=== PATIENT | female | born 2005 | race Caucasian/White ===

== ENCOUNTER 2024-01-11 07:08 | Emergency (ER) | payer OTHER ==
[2024-01-11] MEDS ORDERED: NA CHLORIDE 0.9% 1,000 ML ONE (07:29)
[2024-01-11] MEDS ORDERED: ONDANSETRON 4 MG/2 ML VIAL ONE (07:29)
[2024-01-11 07:59] LABS: Absolute Basophils 0.1 K/uL (0-0.5); Absolute Eosinophils 0.1 K/uL (0-0.5); Absolute Lymphocytes (CBC) 2.1 K/uL (0.7-4.9); Absolute Neutrophil 7.1 K/uL (1.8-8.0); Basophils % 0.6 % (0-1.3); Eosinophils % 0.8 % (0-4.4); Hematocrit 50.2 % (36.0-45.0); Hemoglobin 16.6 g/dL (12.0-15.0); Lymphocytes % 20.5 % (15.3-44.8); MCH 29.3 pg (27.0-35.0); MCHC 33.1 g/dL (32.0-36.0); MCV 88.5 fL (80-100); MPV 9.1 fL (7.6-11.3); Monocytes % 9.3 % (3.3-12.3); Neutrophils % 68.8 % (41.7-73.7); Platelets 234 thou/uL (152-406); RBC Red Blood Cell Count 5.67 M/uL (3.86-4.86); Red Cell Distribution Width 14.2 % (12.1-15.2)
[2024-01-11 08:18] LABS: Albumin 4.2 g/dL (3.4-5.0); Albumin/Globulin Ratio 1.2 (1.1-1.8); Anion Gap 15.4 mEq/L (5.0-15.0); Bilirubin Total 1.2 mg/dL (0.2-1.0); Globulin 3.6 g/dL (2.3-3.5); Potassium 3.4 mEq/L (3.5-5.1); Protein, Total 7.8 g/dL (6.4-8.2)
[2024-01-11 08:28] LABS: SARS-CoV-2 Antigen CONTROL BLUE LINE VIS/BG OK
[2024-01-11 08:29] LABS: SARS-CoV-2 Antigen Rapid Res Negative (Negative)
[2024-01-11 08:29] LABS: Specific Gravity > 1.030 (1.005-1.030)
[2024-01-11 08:33] LABS: Specific Gravity > 1.030 (1.005-1.030); Sqamous Epithelial 20-50 /HPF (None Seen); Transitional Epithelial <5 /HPF (None Seen); Urine Bacteria 20-50 /HPF (<20); Urine Bilirubin NEGATIVE (Negative); Urine Blood Negative (Negative); Urine Clarity Extremely Turbid (Clear); Urine Color Yellow (Yellow); Urine Culture Reflex Order NOT NEEDED; Urine Glucose NEGATIVE (Negative); Urine Ketones 4+ (Over) (Negative); Urine Microscopic Reflex YN ORDER UMIC; Urine Mucus 2+ /HPF (None Seen); Urine Nitrite NEGATIVE (Negative); Urine Protein 1+ (Negative); Urine Urobilinogen 1+ (Normal); Urine pH 5.5 (5.0-7.0)
--- NOTE | 2024-01-11 09:04 | RAD REPORT ---
EXAM DESCRIPTION: CT - Abdomen Pelvis W Contrast - 01/11/2024 8:41 am CLINICAL HISTORY: ABD PAIN COMPARISON: No comparisons TECHNIQUE: Thin cut axial CT imaging of the abdomen and pelvis was performed following intravenous a dministration of 100 mL Isovue 300. Multiplanar reformats were generated and reviewed. All CT scans are performed using dose optimization technique as appropriate and may include automated exposure control or mA/KV adjustment according to patient size. FINDINGS: No suspicious findings in the lung bases. The liver, spleen, adrenal glands, and pancreas show no suspicious findings. Gallbladder was surgical ly removed. Symmetric renal function is seen with no hydronephrosis or suspicious renal mass. No dilated bowel loops or bowel wall thickening. No free air, free fluid or inflammatory stranding. N o hernia, mass or bulky lymphadenopathy. IUD in place. Urinary bladder is decompressed limiting evalu ation. 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 No other suspicious bony f indings. IMPRESSION: No acute intra-abdominal process.
--- NOTE | 2024-01-11 09:30 | ER ---
Nurse's Notes [facility] Name: Jeimy Harris Age: 19 yrs Sex: Female : 2005 Arrival Date: 01/11/2024 Time: 07:08 Bed 16 Private MD: Diagnosis: Vomiting, unspecified;UTI/ Urinary tract infection, site not specified Presentation: 01/10 07:24 Chief complaint: Patient states: vomiting, diarrhea , body aches since last night. iw Coronavirus screen: Client presents with at least one sign or symptom that may indicate coronavirus-19. Ebola Screen: No symptoms or risks identified at this time. Initial Sepsis Screen: Does the patient meet any 2 criteria? HR > 90 bpm. Does the patient have a suspected source of infection?. Risk Assessment: Do you want to hurt yourself or someone else? Patient reports no desire to harm self or others. Onset of symptoms was January 10, 2024. 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 - Infectious Disease History:: Denies. - Social history:: Smoking status: Patient reports the use of cigarette tobacco products, denies chronic smoking, but will smoke occasionally, Reported history of juuling and/or vaping. - Family history:: not pertinent. - Hospitalizations: : No recent hospitalization is reported. Screenin:30 [facility] [place] ED Fall Risk Assessment (Adult) History of falling in the last 3 months, db including since admission No falls in past 3 months (0 pts) Confusion or Disorientation No (0 pts) Intoxicated or Sedated No (0 pts) Impaired Gait No (0 pts) Mobility Assist Device Used No (0 pt) Altered Elimination No (0 pt) Score/Fall Risk Level 0 - 2 = Low Risk Oriented to surroundings, Maintained a safe environment. Abuse screen: Denies threats or abuse. Denies injuries from another. Nutritional screening: No deficits noted. Tuberculosis screening: No symptoms or risk factors identified. Assessment: 07:24 Reassessment: Patient appears in no apparent distress at this time. Patient and/or db family updated on plan of care and expected duration. Pain level reassessed. Patient is alert, oriented x 3, equal unlabored respirations, skin warm/dry/pink. General: Appears in no apparent distress. comfortable, Behavior is calm, cooperative. Neuro: Level of Consciousness is awake, alert, obeys commands, Oriented to person, place, time, situation. GI: Abdomen is flat, Reports diarrhea. 08:21 Reassessment: Patient appears in no apparent distress at this time. Patient and/or db family updated on plan of care and expected duration. Pain level reassessed. Patient is alert, oriented x 3, equal unlabored respirations, skin warm/dry/pink. 08:21 Pain: Denies pain. db 09:38 Reassessment: Patient appears in no apparent distress at this time. Patient and/or db family updated on plan of care and expected duration. Pain level reassessed. Patient is alert, oriented x 3, equal unlabored respirations, skin warm/dry/pink. General: Appears in no apparent distress. comfortable, Behavior is calm, cooperative. Vital Signs: 07:24 BP 140 / 83; Pulse 102; Resp 16; Temp 98; Pulse Ox 98% on R/A; Weight 77.11 kg; Height iw 5 ft. 5 in. ; Pain 8/10; 08:00 BP 114 / 81; Pulse 66; Resp 16; Pulse Ox 97% on R/A; db 09:38 BP 140 / 83; Pulse 70; Resp 16; Pulse Ox 98% on R/A; db 07:24 Body Mass Index 28.29 (77.11 kg, 165.1 cm) iw 07:24 Pain Scale: Adult iw ED Course: 07:14 Patient arrived in ED. ra3 07:14 Niall Hill MD is Attending Physician. rn 07:16 Donna Sanchez, RUDDY is Primary Nurse. db 07:28 Triage completed. iw 07:28 Arm band placed on. iw 07:29 Inserted saline lock: 20 gauge in left antecubital area, using aseptic technique. Blood db collected. Flushed with 10 mL NS. 07:40 Initial lab(s) drawn, by me, sent to lab. COVID swab sent to lab. Flu and/or RSV swab db sent to lab. 08:00 Patient has correct armband on for positive identification. Bed in low position. Call db light in reach. Side rails up X 1. Pulse ox on. NIBP on. Warm blanket given. Pillow given. 08:15 Urine collected: clean catch specimen, clear. db 08:43 CT Abd/Pelvis - IV Contrast Only In Process Unspecified. EDMS 09:39 Provided Education on: DISCHARGE. db 09:39 No provider procedures requiring assistance completed. IV discontinued, intact, db bleeding controlled, No redness/swelling at site. Administered Medications: 07:35 Drug: NS 0.9% IV 1000 ml IV at 1 bolus Per protocol; 1000 mL bolus Route: IV; Rate: 1 db bolus; Site: left antecubital; 09:39 Follow up: Response: No adverse reaction; IV Status: Completed infusion; IV Intake: db 1000ml 07:35 Drug: Ondansetron IVP 4 mg IVP once; over 2 minutes Route: IVP; Site: left antecubital; db 09:40 Follow up: Response: No adverse reaction db Medication: 09:39 VIS not applicable for this client. db Intake: 09:39 IV: 1000ml; Total: 1000ml. db Outcome: 09:29 Discharge ordered by . rn 09:39 Discharged to home ambulatory, db 09:39 Condition: stable 09:39 Discharge instructions given to patient, Instructed on discharge instructions, follow up and referral plans. Prescriptions given X 2, 09:40 Patient left the ED. db Signatures: Dispatcher [employer] Samina Mcgee, RN Niall Chase MD MD rn Benton, Danielle RN Kitty Leigh ra3 Corrections: (The following items were deleted from the chart) 07:46 07:28 PSHx: None; [facility]
--- NOTE | 2024-01-11 09:30 | EDPHYS ---
Physician Documentation [facility] Name: Jeimy Harris Age: 19 yrs Sex: Female : 2005 Arrival Date: 01/11/2024 Time: 07:08 Bed 16 Private MD: ED Physician Niall Hill HPI: 01/10 07:27 This 19 yrs old Female presents to ER via Unassigned with complaints of Vomiting. rn 07:27 The patient presents to the emergency department with nausea, vomiting, diarrhea, rn abdominal pain. Onset: The symptoms/episode began/occurred 3 day(s) ago. Possible causes: unknown. 07:28 The symptoms are aggravated by nothing. The symptoms are alleviated by nothing. rn Associated signs and symptoms: Pertinent positives: abdominal pain, diarrhea, nausea, vomiting, Pertinent negatives: GI bleeding, hematuria. Severity of symptoms: At their worst the symptoms were moderate in the emergency department the symptoms are unchanged. The patient has not experienced similar symptoms in the past. The patient has not recently seen a physician. Patient reports 3 days of nausea/vomiting/diarrhea/abdominal pain. Diffuse abdominal cramping. No blood in emesis or diarrhea. Subjective fever. No sick contacts.. 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 - Infectious Disease History:: Denies. - Social history:: Smoking status: Patient reports the use of cigarette tobacco products, denies chronic smoking, but will smoke occasionally, Reported history of juuling and/or vaping. - Family history:: not pertinent. - Hospitalizations: : No recent hospitalization is reported. ROS: 07:28 Constitutional: + fever ENT: Positive for nasal congestion Cardiovascular: Negative for rn chest pain, palpitations, and edema, Respiratory: Negative for shortness of breath, cough, wheezing, and pleuritic chest pain, Abdomen/GI: Positive for nausea/vomiting/diarrhea MS/Extremity: Negative for injury and deformity, Skin: Negative for injury, rash, and discoloration, Neuro: Positive for generalized weakness Exam: 07:28 Constitutional: This is a well developed, well nourished patient who is awake, alert, rn and in no acute distress. ENT: Dry mucous membranes Cardiovascular: Tachycardic, regular Respiratory: No increased work of breathing, no retractions or nasal flaring. Abdomen/GI: Soft, no focal tenderness MS/ Extremity: Pulses equal, no cyanosis. Neuro: Awake and alert, GCS 15 Vital Signs: 07:24 BP 140 / 83; Pulse 102; Resp 16; Temp 98; Pulse Ox 98% on R/A; Weight 77.11 kg; Height iw 5 ft. 5 in. ; Pain 8/10; 08:00 BP 114 / 81; Pulse 66; Resp 16; Pulse Ox 97% on R/A; db 09:38 BP 140 / 83; Pulse 70; Resp 16; Pulse Ox 98% on R/A; db 07:24 Body Mass Index 28.29 (77.11 kg, 165.1 cm) iw 07:24 Pain Scale: Adult iw MDM: 07:14 Patient medically screened. rn 09:28 Differential diagnosis: Nonspecific abd pain, pancreatitis, appendicitis, rn diverticulitis, viral gastroenteritis, gastroenteritis. Data reviewed: vital signs, nurses notes, lab test result(s), radiologic studies, CT scan, and as a result, I will discharge patient. Counseling: I had a detailed discussion with the patient and/or guardian regarding the historical points, exam findings, and any diagnostic results supporting the discharge/admit diagnosis, lab results, radiology results, the need for outpatient follow up, to return to the emergency department if symptoms worsen or persist or if there are any questions or concerns that arise at home. Special discussion: I discussed with the patient/guardian in detail that at this point there is no indication for admission to the hospital. It is understood, however, that if the symptoms persist or worsen the patient needs to return immediately for re-evaluation. 01/10 07:27 Order name: CBC with Diff; Complete Time: 08:08 rn 01/10 07:27 Order name: CMP; Complete Time: 08:23 rn 01/10 07:27 Order name: Lipase; Complete Time: 08:23 rn 01/10 07:27 Order name: Test, Urine; Complete Time: 08:35 rn 01/10 07:27 Order name: Urinalysis w/ reflexes; Complete Time: 08:35 rn 01/10 07:28 Order name: SARS RAPID; Complete Time: 08:35 rn 01/10 07:28 Order name: Flu; Complete Time: 08:35 rn 01/10 07:27 Order name: CT Abd/Pelvis - IV Contrast Only; Complete Time: 09:14 rn 01/10 07:27 Order name: IV Saline Lock; Complete Time: 07:29 rn 01/10 07:27 Order name: Labs collected and sent; Complete Time: 07:35 rn Administered Medications: 07:35 Drug: NS 0.9% IV 1000 ml IV at 1 bolus Per protocol; 1000 mL bolus Route: IV; Rate: 1 db bolus; Site: left antecubital; 09:39 Follow up: Response: No adverse reaction; IV Status: Completed infusion; IV Intake: db 1000ml 07:35 Drug: Ondansetron IVP 4 mg IVP once; over 2 minutes Route: IVP; Site: left antecubital; db 09:40 Follow up: Response: No adverse reaction db Disposition Summary: 01/11/24 09:29 Discharge Ordered Notes: Location: Home rn Problem: new rn Symptoms: have improved rn Condition: Stable rn Diagnosis - Vomiting, unspecified rn - UTI/ Urinary tract infection, site not specified rn Followup: rn - With: Private Physician - When: As needed - Reason: Recheck today's complaints, Re-evaluation by your physician Discharge Instructions: - Discharge Summary Sheet rn - Nausea and Vomiting, Adult rn - Urinary Tract Infection, Adult rn Forms: - Medication Reconciliation Form rn - Antibiotic government minister - Prescription Opioid Use rn - Patient Portal Instructions rn - Leadership Thank You Letter rn Prescriptions: - ondansetron 4 mg Oral Tablet,disintegrating - take 1 tablet ORAL route every 8 hours As needed; 12 tablet; Refills: 0, rn Product Selection Permitted - Cipro 500 mg Oral Tablet - take 1 tablet ORAL route every 12 hours for 7 days; 14 tablet; Refills: 0, rn Product Selection Permitted Signatures: Dispatcher [employer] Samina Mcgee RN Niall Chase MD MD rn Benton, Danielle, RN RN db Corrections: (The following items were deleted from the chart) 07:27 07:27 CBC+H.LAB.BRZ ordered. EDWY EDMS 07: 07:27 COMPREHENSIVE METABOLIC PANEL+C.LAB.BRZ ordered. EDMS EDMS 07: 07:27 LIPASE+C.LAB.BRZ ordered. EDMS EDMS : 07:27 Test, Urine+UC.LAB.BRZ ordered. EDMS EDMS : 07:27 Urinalysis+U.LAB.BRZ ordered. EDMS EDMS 07:46 07:28 PSHx: None; iw iw
[2024-01-11 09:54] VITALS: TEMP 98
[2024-01-11 10:06] VITALS: BP 140/83; O2SAT 98
== END 2024-01-11 09:40 | disposition home or self-care (01) ==
LOC: ER 07:08
DX: N39.0 Urinary tract infection, site not specified (principal); Z11.52 Encounter for screening for COVID-19
CPT/HCPCS: 96361; 85025; 81001; 36415; 81025; 83690; 80053; 87804 ×2; 74177; 96374; 99284; 87811; Q9967; J2405; J7030